=== PATIENT | male | born 1965 | race American Indian/Alaskan Native ===

== ENCOUNTER 2019-10-23 17:20 | Emergency (ER) | payer OTHER ==
[2019-10-23 18:35] LABS: Hematocrit 40.1 % (35.5-45.6); Hemoglobin 12.9 gm/dl (11.8-15.2); Mean Corpuscular HGB Conc 32 % (32-34); Mean Corpuscular Volume 73 fl (84-94); Platelet Count 304 K/mm3 (140-440); Red Blood Count 5.48 M/mm3 (3.65-5.03); Red Cell Distribution Width 14.2 % (13.2-15.2)
[2019-10-23 18:54] LABS: Alanine Aminotransferase 105 units/L (7-56); Albumin 3.8 g/dL (3.9-5); BUN/Creatinine Ratio 24; Blood Urea Nitrogen 19 mg/dL (9-20); Calcium 10.1 mg/dL (8.4-10.2); Hemolysis Index 10
[2019-10-23 19:24] LABS: Basophils % (Manual) 0 % (0.0-1.8); Total Cells Counted 100
[2019-10-23 19:25] LABS: Anisocytosis 1+; Hypochromasia 1+
--- NOTE | 2019-10-23 23:21 | Emergency Department Report ---
ED General Adult HPI - General Chief complaint: Nausea/Vomiting/Diarrhea Stated complaint: FATIGUE, WEIGHT LOSS PUI?: No Time Seen by Provider: 10/23/19 22:36 Source: patient Mode of arrival: Ambulatory Limitations: No Limitations - History of Present Illness Initial comments: Patient is a 54-year-old male that presents emergency room with complaints of decreased appetite and diarrhea intermittent abdominal pain. Patient denies abdominal pain at this time. Patient states his abdominal pain at times is a cramping is a 2 out of 10. Patient states he does not have any pain at this time. Patient that she has had any pain for approximately 4 days since he started Cipro and Flagyl. Patient states his symptoms been going on for 10 days. Patient states that he is been going 6-8 times a day with watery stools. Patient denies blood in his diarrhea. Patient states he saw his primary care and he said it was an infectious diarrhea and gave him Cipro and Flagyl. Patient states that his diarrhea is improving with the treatment. Patient states that his primary care also referred him to GI. Patient states he believes he has had a 40 pound weight loss in the last 10 days. Patient denies nausea and vomiting. Patient denies abdominal pain. Patient denies fever and chills. Patient denies abdominal distention. Patient denies any other physical complaints. Patient states she just wants to make sure that there is nothing wrong with the system. Patient denies chest pain or shortness of breath. Patient denies blood in his stool. Patient states he is able to eat with no problems. Patient states he is not having any problem taking his medications. Patient states his diarrhea has slowed down from 6-8 times a day to 2-3 times per day. Patient denies recent travel. Patient denies recent international travel. Patient denies exposure to the novel coronavirus. Patient denies sick contacts. Patient denies fever and chills. Patient denies cough. Patient denies coming in contact with anybody with symptoms of the novel coronavirus. -: Sudden, days(s) Location: abdomen Severity scale (0 -10): 2 Quality: other Consistency: now resolved Improves with: medication Worsens with: none Associated Symptoms: loss of appetite, malaise. denies: confusion, chest pain, cough, diaphoresis, fever/chills, headaches, nausea/vomiting, rash, seizure, shortness of breath, syncope, weakness Treatments Prior to Arrival: other - Related Data Home Medications Medication Instructions Recorded Confirmed Last Taken Ibuprofen [Motrin] 200 mg PO Q6H PRN 08/15/13 08/15/13 08/15/13 lisinopriL [Zestril TAB] 20 mg PO DAILY 08/15/13 08/15/13 08/15/13 Previous Rx's Medication Instructions Recorded Last Taken Type HYDROcodone/APAP 7.5-325 [[place] 1 each PO Q6HR PRN #20 tablet 08/15/13 Unknown Rx 7.5/325 mg] Ibuprofen [Motrin] 600 mg PO Q8H PRN #60 tablet 08/15/13 Unknown Rx predniSONE [Deltasone] 50 mg PO QDAY #5 tab 08/15/13 Unknown Rx Allergies Allergy/AdvReac Type Severity Reaction Status Date / Time No Known Allergies Allergy Verified 10/23/19 17:39 ED Review of Systems ROS: Stated complaint: FATIGUE, WEIGHT LOSS Other details as noted in HPI Constitutional: malaise. denies: chills, fever Eyes: denies: eye pain, eye discharge, vision change ENT: denies: ear pain, throat pain Respiratory: denies: cough, shortness of breath, wheezing Cardiovascular: denies: chest pain, palpitations Endocrine: no symptoms reported Gastrointestinal: as per HPI, abdominal pain, diarrhea. denies: nausea, constipation, hematemesis, melena, hematochezia Genitourinary: denies: urgency, dysuria Musculoskeletal: denies: back pain, joint swelling, arthralgia Skin: denies: rash, lesions Neurological: denies: headache, weakness, paresthesias Psychiatric: denies: anxiety, depression Hematological/Lymphatic: denies: easy bleeding, easy bruising ED Past Medical Hx - Past Medical History Previous Medical History?: Yes Hx Hypertension: Yes - Surgical History Past Surgical History?: No - Family History Family history: no significant - Social History Smoking Status: Never Smoker Substance Use Type: None - Medications Home Medications: Home Medications Medication Instructions Recorded Confirmed Last Taken Type HYDROcodone/APAP 7.5-325 [[place] 1 each PO Q6HR PRN #20 tablet 08/15/13 Unknown Rx 7.5/325 mg] Ibuprofen [Motrin] 200 mg PO Q6H PRN 08/15/13 08/15/1314 History Ibuprofen [Motrin] 600 mg PO Q8H PRN #60 tablet 08/15/13 Unknown Rx lisinopriL [Zestril TAB] 20 mg PO DAILY 08/15/13 08/15/13 08/15/13 History predniSONE [Deltasone] 50 mg PO QDAY #5 tab 08/15/13 Unknown Rx ED Physical Exam - General Limitations: No Limitations General appearance: alert, in no apparent distress - Head Head exam: Present: atraumatic, normocephalic - Eye Eye exam: Present: normal appearance, PERRL Pupils: Present: normal accommodation - ENT ENT exam: Present: mucous membranes moist - Neck Neck exam: Present: normal inspection - Respiratory Respiratory exam: Present: normal lung sounds bilaterally. Absent: respiratory distress, wheezes, rales - Cardiovascular Cardiovascular Exam: Present: regular rate, normal rhythm. Absent: systolic murmur, diastolic murmur, rubs, gallop - GI/Abdominal GI/Abdominal exam: Present: soft, normal bowel sounds. Absent: distended, tenderness, guarding, rebound, rigid - Rectal Rectal exam: Present: deferred - Extremities Exam Extremities exam: Present: normal inspection - Back Exam Back exam: Present: normal inspection - Neurological Exam Neurological exam: Present: alert, oriented X3 - Psychiatric Psychiatric exam: Present: normal affect, normal mood - Skin Skin exam: Present: warm, dry, intact, normal color. Absent: rash ED Course Vital Signs 10/23/19 10/23/19 10/23/19 17:34 22:40 23:50 Temperature 98.1 F 98.6 F Pulse Rate 95 H 90 Respiratory 18 18 18 Rate Blood Pressure 131/96 Blood Pressure 136/88 [Left] O2 Sat by Pulse 100 100 98 Oximetry - Reevaluation(s) Reevaluation #1: I discussed all results and clinical findings with patient. I discussed plan of care with patient. Patient agrees with plan of care. Patient is stable for discharge. Patient will be discharged home. Patient given discharge instructi ons. Patient voiced understanding of discharge instructions. 10/23/19 23:28 ED Medical Decision Making - Lab Data Result diagrams: 10/23/19 18:06 10/23/19 18:06 - Medical Decision Making Patient is a 54-year-old male who presents emergency room with complaints of diarrhea and weight loss. Patient had abdominal pain prior to starting Cipro and Flagyl and abdominal pain is resolved. Patient was given Cipro Flagyl by his PCP for possible infectious diarrhea. Patient symptoms have improved and his diarrhea is less frequent. Patient was initially having 6-8 loose stools per day and is now down to 2-3. Patient had labs done in ER which are essentially unremarkable. Patient did complain of a 40 pound weight loss in the last 10 days however the patient does not appear to be emaciated or like he lost weight. Patient can follow-up with the GI to his primary care referred him to for further evaluation and treatment and a colonoscopy and evaluation of this weight loss. Patient not require further emergency medical services. Patient instructed to continue all medications. Patient given discharge instructions. Patient given strict ER precautions and return to ER precautions. - Differential Diagnosis Diarrhea, abdominal pain, weight loss Critical care attestation.: If time is entered above; I have spent that time in minutes in the direct care of this critically ill patient, excluding procedure time. ED Disposition Clinical Impression: Weight loss Diarrhea Qualifiers: Diarrhea type: unspecified type Qualified Code(s): R19.7 - Diarrhea, unspecified Abdominal pain Qualifiers: Abdominal location: unspecified location Qualified Code(s): R10.9 - Unspecified abdominal pain Disposition: DC- TO HOME OR SELFCARE Is pt being admited?: No Does the pt Need Aspirin: No Condition: Stable Instructions: Traveler's Diarrhea (ED), Gastroenteritis (ED) Additional Instructions: Patient to follow-up with primary care in 2 to 3 days. Patient to follow-up with gastroenterology in 2 to 3 days. Patient to rest. Patient to avoid Imodium. Patient to eat a brat diet. Patient to increase water. Patient to continue all medications. Patient to take Tylenol or ibuprofen as needed for pain. Patient to return to the ER if condition worsens, changes or new symptoms arise. Referrals: PRIMARY CARE,MD [Primary Care Provider] - 2-3 Days Time of Disposition: 23:31
[2019-10-24 01:47] VITALS: BP 136/88
== END 2019-10-23 23:50 | disposition home or self-care (01) ==
LOC: ED 17:20
DX: R63.4 Abnormal weight loss (principal); R10.9 Unspecified abdominal pain; R19.7 Diarrhea, unspecified; I10 Essential (primary) hypertension; Z79.899 Other long term (current) drug therapy
CPT/HCPCS: 36415; 80053; 83690; 85007; 85025; 99283

== ENCOUNTER 2020-03-02 16:51 | Emergency (ER) | payer OTHER ==
[2020-03-02 16:59] VITALS: BP 146/63
[2020-03-02] MEDS ORDERED: ASPIRIN 325 MG TAB PO ONE (16:59)
--- NOTE | 2020-03-02 17:32 | XRay Report ---
CHEST 2 VIEWS INDICATION / CLINICAL INFORMATION: Chest Pain. COMPARISON: None available. FINDINGS: SUPPORT DEVICES: None. HEART / MEDIASTINUM: Heart size at the upper limits of normal LUNGS / PLEURA: No significant pulmonary or pleural abnormality. No pneumothorax. ADDITIONAL FINDINGS: No significant additional findings. IMPRESSION: Heart size is at the upper limits of normal. No acute disease Signer Name: Stef Rocha MD FACR Signed: 03/02/2020 5:27 PM Workstation Name: [id number]
[2020-03-02 17:41] LABS: Hematocrit 42.7 % (35.5-45.6); Hemoglobin 13.7 gm/dl (11.8-15.2); Mean Corpuscular HGB Conc 32 % (32-34); Mean Corpuscular Volume 76 fl (84-94); Platelet Count 193 K/mm3 (140-440); Red Blood Count 5.61 M/mm3 (3.65-5.03); Red Cell Distribution Width 14.3 % (13.2-15.2)
[2020-03-02 17:58] LABS: BUN/Creatinine Ratio 20; Blood Urea Nitrogen 16 mg/dL (9-20); Calcium 8.9 mg/dL (8.4-10.2); Hemolysis Index 7
[2020-03-02 18:29] LABS: Total Cells Counted 100
[2020-03-02 18:30] LABS: Basophils % (Manual) 0 % (0.0-1.8)
[2020-03-02 18:31] LABS: Eosinophils % (Manual) 0 % (0.0-4.3)
[2020-03-02 18:32] LABS: Platelet Estimate Consistent w Auto
[2020-03-02 18:33] LABS: Anisocytosis Few
--- NOTE | 2020-03-03 00:59 | Emergency Department Report ---
ED Chest Pain HPI - General Chief Complaint: Chest Pain Stated Complaint: DIZZY/SOB Time Seen by Provider: 03/03/20 00:33 Source: patient Mode of arrival: Ambulatory Limitations: No Limitations - Related Data Home Medications Medication Instructions Recorded Confirmed Last Taken Ibuprofen [Motrin] 200 mg PO Q6H PRN 08/15/13 08/15/13 08/15/13 lisinopriL [Zestril TAB] 20 mg PO DAILY 08/15/13 08/15/13 08/15/13 Previous Rx's Medication Instructions Recorded Last Taken Type HYDROcodone/APAP 7.5-325 [[place] 1 each PO Q6HR PRN #20 tablet 08/15/13 Unknown Rx 7.5/325 mg] Ibuprofen [Motrin] 600 mg PO Q8H PRN #60 tablet 08/15/13 Unknown Rx predniSONE [Deltasone] 50 mg PO QDAY #5 tab 08/15/13 Unknown Rx Allergies Allergy/AdvReac Type Severity Reaction Status Date / Time No Known Allergies Allergy Verified 10/23/19 17:39 Heart Score - HEART Score History: Slightly suspicious EKG: Normal Age: < 45 Risk factors: 1-2 risk factors Troponin: < normal limit HEART Score: 1 ED Review of Systems ROS: Stated complaint: DIZZY/SOB Other details as noted in HPI Comment: All other systems reviewed and negative ED Past Medical Hx - Past Medical History Previous Medical History?: Yes Hx Hypertension: Yes - Surgical History Past Surgical History?: No - Social History Smoking Status: Never Smoker Substance Use Type: None - Medications Home Medications: Home Medications Medication Instructions Recorded Confirmed Last Taken Type HYDROcodone/APAP 7.5-325 [[place] 1 each PO Q6HR PRN #20 tablet 08/15/13 Unknown Rx 7.5/325 mg] Ibuprofen [Motrin] 200 mg PO Q6H PRN 08/15/13 08/15/13 08/15/13 History Ibuprofen [Motrin] 600 mg PO Q8H PRN #60 tablet 08/15/13 Unknown Rx lisinopriL [Zestril TAB] 20 mg PO DAILY 08/15/13 08/15/13 08/15/13 History predniSONE [Deltasone] 50 mg PO QDAY #5 tab 08/15/13 Unknown Rx ED Physical Exam - General Limitations: No Limitations General appearance: alert, in no apparent distress - Head Head exam: Present: atraumatic, normocephalic - Eye Eye exam: Present: normal appearance, PERRL, EOMI, scleral icterus Pupils: Present: normal accommodation - ENT ENT exam: Present: mucous membranes moist - Neck Neck exam: Present: normal inspection - Respiratory Respiratory exam: Present: normal lung sounds bilaterally. Absent: respiratory distress - Cardiovascular Cardiovascular Exam: Present: regular rate, normal rhythm. Absent: systolic murmur, diastolic murmur, rubs, gallop - GI/Abdominal GI/Abdominal exam: Present: soft, normal bowel sounds - Rectal Rectal exam: Present: deferred - Extremities Exam Extremities exam: Present: normal inspection - Back Exam Back exam: Present: normal inspection - Neurological Exam Neurological exam: Present: alert, oriented X3 - Psychiatric Psychiatric exam: Present: normal affect, normal mood - Skin Skin exam: Present: warm, dry, intact, normal color. Absent: rash ED Course Vital Signs 03/02/20 16:53 Temperature 97.6 F Pulse Rate 63 Respiratory 18 Rate Blood Pressure 146/63 O2 Sat by Pulse 98 Oximetry BRADLEY score - Bradley Score Age > 65: (0) No Aspirin use within the Past 7 Days: (0) No 3 or more CAD Risk Factors: (0) No 2 or more Angina events in past 24 hrs: (0) No Known CAD with more than 50% Stenosis: (0) No Elevated Cardiac Markers: (0) No ST Deviation Greater than 0.5mm: (0) No BRADLEY Score: 0 ED Medical Decision Making - Lab Data Result diagrams: 03/02/20 17:25 03/02/20 17:25 - EKG Data -: EKG Interpreted by [place] EKG shows normal: sinus rhythm Rate: normal - Radiology Data Radiology results: report reviewed Referring Physician:ED DOCPatient Name:ZENOBIA MARCOSIPatient ID:[id number] of :[id number]:MaleAccession:[id number] Date:[id number] Status:Finalized Findings [facility] [address] [place] [address] XRay Report Signed Patient: ZENOBIA MOREJON MR#: [id number] 313 : 1965 Acct:[id number] Age/Sex: 54 / M ADM Date: 03/02/20 Loc: ED Attending Dr: Ordering Physician: KEVIN GORMAN MD Date of Service: 03/02/20 Procedure(s): XR chest routine 2V Accession Number(s): [id number] cc: ED MD VITA Fluoro Time In Minutes: CHEST 2 VIEWS INDICATION / CLINICAL INFORMATION: Chest Pain. COMPARISON: None available. FINDINGS: SUPPORT DEVICES: None. HEART / MEDIASTINUM: Heart size at the upper limits of normal LUNGS / PLEURA: No significant pulmonary or pleural abnormality. No pneumothorax. ADDITIONAL FINDINGS: No significant additional findings. IMPRESSION: Heart size is at the upper limits of normal. No acute disease Signer Name: Stef Rocha MD FACR Signed: 03/02/2020 5:27 PM Workstation Name: [id number] Transcribed By: MS Dictated By: Stef Rocha MD Electronically Authenticated By: Stef Rocha MD Signed Date/Time: 03/02/201726 DD/ 25 TD/TT: - Medical Decision Making This patient presents with chest pain that is very unlikely angina or acute coronary syndrome. The emergency department evaluation has not identified any cause for suspicion that this chest pain has a cardiac etiology. Based on their history, EKG (which showed no evidence of ischemia or infarction) and imaging, in addition to the patient's physical exam, I see no evidence at this time for a malignant etiology for the patient's chest pain. There is no acute evidence for pulmonary embolus, acute myocardial infarction, pneumothorax, Boerhaeve syndrome, cardiac tamponade, thoracic artery dissection, or any other emergent cardiac, pulmonary or aortic pathology. Given the low pre-test probability for cardiac etiology of chest pain and the absence of any sign of ischemia or infarction, discharge for outpatient follow-up and further evaluation is reasonable. I have explained to the patient that even though a cardiac problem is very unlikely, follow-up and further testing is required to reduce further the already small uncertainty that exists. Other life-threatening diagnoses have been considered. The patient understands the need to return immediately if their symptoms worsen or they develop any new symptoms, and not to engage in any significant exertional activity until follow-up is obtained. Critical care attestation.: If time is entered above; I have spent that time in minutes in the direct care of this critically ill patient, excluding procedure time. ED Disposition Clinical Impression: Chest pain, Palpitations Disposition: TO HOME OR SELFCARE Is pt being admited?: No Does the pt Need Aspirin: No Condition: Stable Instructions: Chest Pain (ED), Nonspecific Chest Pain, Adult, Palpitations Referrals: OTF AGUILAR MD [Primary Care Provider] - 3-5 Days MELE CHRISTIE MD [Staff Physician] - 3-5 Days
== END 2020-03-03 01:30 | disposition home or self-care (01) ==
LOC: ED 16:51
DX: R07.89 Other chest pain (principal); R00.2 Palpitations; I10 Essential (primary) hypertension; Z79.899 Other long term (current) drug therapy
CPT/HCPCS: 36415; 71046; 80048; 84484; 85007; 85025; 93005; 99283